=== PATIENT | male | born 1990 | race Caucasian/White ===

== ENCOUNTER 2018-07-09 10:58 | Emergency (ER) | payer OTHER ==
[2018-07-09] MEDS ORDERED: NS 1,000 ML IV ONE (11:16)
--- NOTE | 2018-07-09 11:20 | EDPHY ---
H & P Stated Complaint: epigastric pain, blood in stool, vomiting with some blood in emesis Time Seen by Provider: 07/09/18 11:16 HPI/ROS: CHIEF COMPLAINT: Scant hematemesis and hematochezia HISTORY OF PRESENT ILLNESS: The patient presents to the ED with a 1 day history of scant hematemesis and hematochezia. The patient had several episodes of bilious vomiting yesterday. He developed a small amount of hematochezia. The patient is also continued to have some diarrhea and loose stool. He has had some bright red blood noted in the toilet. Patient does report he has a fairly heavy drinker. He has had problems with intermittent GI bleeding in the past which he has not had evaluated. The patient does complain of epigastric pain and some chest discomfort. The patient denies any fever, headache or acute neurologic symptoms. REVIEW OF SYSTEMS: A comprehensive 10 point review of systems is otherwise negative aside from elements mentioned in the history of present illness. Source: Patient Exam Limitations: No limitations - Personal History Current Tetanus/Diphtheria Vaccine: Unsure Current Tetanus Diphtheria and Acellular Pertussis (TDAP): Unsure - Medical/Surgical History Hx Asthma: No Hx Chronic Respiratory Disease: No Hx Diabetes: No Hx Cardiac Disease: No Hx Renal Disease: No Hx Cirrhosis: No Hx Alcoholism: No Hx HIV/AIDS: No Hx Splenectomy or Spleen Trauma: No Other PMH: ETOH - Social History Smoking Status: Current every day smoker - Physical Exam Exam: General Appearance: Alert, no distress Eyes: Pupils equal and round no pallor or injection ENT, Mouth: Mucous membranes moist Respiratory: There are no retractions, lungs are clear to auscultation Cardiovascular: Regular rate and rhythm Gastrointestinal: Minimal epigastric tenderness to palpation, no peritoneal signs, normal bowel sounds Neurological: 5/5 strength noted all 4 extremities Rectal exam: No active bleeding, brown stool noted in the vault Skin: Warm and dry, no rashes Musculoskeletal: Neck is supple nontender Extremities: symmetrical, full range of motion Constitutional: Initial Vital Signs Temperature (C) 36.8 C 07/09/18 11:06 Heart Rate 98 07/09/18 11:06 Respiratory Rate 18 07/09/18 11:06 Blood Pressure 121/76 H 07/09/18 11:06 O2 Sat (%) 96 07/09/18 11:06 O2 Delivery Mode Room Air Allergies/Adverse Reactions: shellfish derived Allergy (Verified 07/09/18 11:06) Home Medications: Medication Instructions Recorded Ondansetron Odt [Zofran Odt] 4 mg PO Q4PRN PRN #20 tab 07/09/18 Pantoprazole Sodium [Protonix 40mg 40 mg PO DAILY #30 tab 07/09/18 (*)] Medical Decision Making - Diagnostics Imaging Results: Imaging Impressions Abdomen X-Ray 07/09/18 11:16 Impression: 1. No localizing features within the abdomen. 2. Normal chest x-ray. ED Course/Re-evaluation: The patient presents the ED with 1 day of vomiting and loose stool. He is noted a scant amount of hematemesis and hematochezia. The patient is noted to be hemodynamically stable upon arrival. Rectal examination demonstrated brown stool. The patient had an IV established. He received a L of normal saline. He received Zofran and a GI cocktail. His initial abdominal examination is reassuring. Workup in the emergency department included a CBC, chemistry panel, liver function panel, coagulation panel and Hemoccult all of which were negative. At this point time I do feel the patient can be started on a proton pump inhibitor. He has been advised to return to the ED for markedly worsening symptoms of bleeding or pain. Additionally the patient has been instructed to follow up with Gastroenterology as he likely does warrant endoscopies given his history of intermittent hematochezia. The patient does have slightly elevated liver function tests likely consistent with his underlying alcohol consumption. I re-evaluated the patient at 12:30 p.m.. He is currently feeling much better. His abdominal examination is benign with only minimal epigastric tenderness. The patient is comfortable going home. He has been advised to return to the ED for markedly worsening symptoms of intestinal bleeding, pain and fever. The patient will be started on Protonix and is given a prescription for Zofran. The patient will contact our on-call associate producer to schedule a follow-up visit. He has also been given the information for the [facility] for assistance with his alcohol dependence. Differential Diagnosis: Differential diagnosis considered includes upper GI bleed, lower GI bleed, gastritis, peptic ulcer disease, pancreatitis, cholecystitis, perforation, obstruction - Data Points Laboratory Results: Laboratory Results 07/09/18 11:25 07/09/18 11:25 07/09/18 07/09/1819 12:15 11:25 11:25 WBC RBC Hgb Hct MCV MCH MCHC RDW Plt Count MPV Neut % (Auto) Lymph % (Auto) [place]ug[place] % (Auto) Eos % (Auto) Baso % (Auto) Nucleat RBC Rel Count Absolute Neuts (auto) Absolute Lymphs (auto) Absolute Monos (auto) Absolute Eos (auto) Absolute Basos (auto) Absolute Nucleated RBC Immature Gran % Immature Gran # PT 12.6 SEC SEC (12.0-15.0) INR 0.98 (0.83-1.16) APTT 26.1 SEC SEC (23.0-38.0) Sodium 134 mEq/L L mEq/L (135-145) Potassium 3.5 mEq/L mEq/L (3.5-5.2) Chloride 97 mEq/L mEq/L (97-110) Carbon Dioxide 26 mEq/l mEq/l (22-31) Anion Gap 11 mEq/L mEq/L (6-14) BUN 13 mg/dL mg/dL (7-23) Creatinine 1.0 mg/dL mg/dL (0.7-1.3) Estimated GFR > 60 Glucose 102 mg/dL H mg/dL (70-100) Calcium 9.2 mg/dL mg/dL (8.5-10.4) Total Bilirubin 1.5 mg/dL H mg/dL (0.1-1.4) Conjugated Bilirubin 0.5 mg/dL mg/dL (0.0-0.5) Unconjugated Bilirubin 1.0 mg/dL mg/dL (0.0-1.1) AST 215 IU/L H IU/L (17-59) ALT 206 IU/L H IU/L (21-72) Alkaline Phosphatase 66 IU/L IU/L (38-126) Total Protein 7.5 g/dL g/dL (6.3-8.2) Albumin 4.5 g/dL g/dL (3.5-5.0) Lipase 261 IU/L IU/L (23-300) Stool Occult Bld Scrn NEGATIVE (NEGATIVE) 07/09/18 11:25 WBC 7.76 10^3/uL 10^3/uL (3.80-9.50) RBC 5.19 10^6/uL 10^6/uL (4.40-6.38) Hgb 17.2 g/dL g/dL (13.7-17.5) Hct 48.1 % % (40.0-51.0) MCV 92.7 fL fL (81.5-99.8) MCH 33.1 pg pg (27.9-34.1) MCHC 35.8 g/dL g/dL (32.4-36.7) RDW 11.6 % % (11.5-15.2) Plt Count 181 10^3/uL 10^3/uL (150-400) MPV 10.1 fL fL (8.7-11.7) Neut % (Auto) 79.8 % H % (39.3-74.2) Lymph % (Auto) 10.1 % L % (15.0-45.0) Refug[place] % (Auto) 6.2 % % (4.5-13.0) Eos % (Auto) 2.4 % % (0.6-7.6) Baso % (Auto) 1.0 % % (0.3-1.7) Nucleat RBC Rel Count 0.0 % % (0.0-0.2) Absolute Neuts (auto) 6.19 10^3/uL 10^3/uL (1.70-6.50) Absolute Lymphs (auto) 0.78 10^3/uL L 10^3/uL (1.00-3.00) Absolute Monos (auto) 0.48 10^3/uL 10^3/uL (0.30-0.80) Absolute Eos (auto) 0.19 10^3/uL 10^3/uL (0.03-0.40) Absolute Basos (auto) 0.08 10^3/uL 10^3/uL (0.02-0.10) Absolute Nucleated RBC 0.00 10^3/uL 10^3/uL (0-0.01) Immature Gran % 0.5 % % (0.0-1.1) Immature Gran # 0.04 10^3/uL 10^3/uL (0.00-0.10) PT INR APTT Sodium Potassium Chloride Carbon Dioxide Anion Gap BUN Creatinine Estimated GFR Glucose Calcium Total Bilirubin Conjugated Bilirubin Unconjugated Bilirubin AST ALT Alkaline Phosphatase Total Protein Albumin Lipase Stool Occult Bld Scrn Medications Given: Discontinued Medications Al Hydroxide/Mg Hydroxide (Maalox Susp) 30 ml PO ONCE ONE Stop: 07/09/18 11:32 Last Admin: 07/09/18 12:03 Dose: 30 ml Hyoscyamine Sulfate (Levsin, Hyomax-Sl) 0.25 mg PO ONCE ONE Stop: 07/09/18 11:32 Last Admin: 07/09/18 12:03 Dose: 0.25 mg Sodium Chloride (Ns) 1,000 mls @ 0 mls/hr IV EDNOW ONE; Wide Open PRN Reason: Protocol Stop: 07/09/18 11:17 Last Admin: 07/09/18 11:48 Dose: 1,000 mls Lidocaine (Lidocaine 2% Viscous) 15 ml PO ONCE ONE Stop: 07/09/18 11:32 Last Admin: 07/09/18 12:03 Dose: 15 ml Pantoprazole Sodium (Protonix) 40 mg IVP EDNOW ONE Stop: 07/09/18 11:32 Last Admin: 07/09/18 12:10 Dose: 40 mg Departure - Departure Disposition: Home, Routine, Self-Care Clinical Impression: Hematochezia Abdominal pain Qualifiers: Abdominal location: epigastric Qualified Code(s): R10.13 - Epigastric pain Condition: Good Instructions: Acute Abdominal Pain (ED) Additional Instructions: 1. Please begin Protonix as prescribed on a daily basis. 2. Zofran as needed for nausea. 3. Given her history of GI bleeding further workup is indicated. You should contact the associate producer you have been referred to to schedule a follow- up visit. 4. Please return to the ED immediately for increasing pain, heavy bleeding, lightheadedness, fever or other concerns. 5. You do have slightly elevated liver function tests likely consistent with your alcohol use. I strongly recommend curtail your alcohol consumption. You have been given the number for the [facility] here in [place] which can help with alcohol withdrawal and dependence. They are open 24 hr a day. Referrals: Lizeth Mcintosh MD [Medical Doctor] - As per Instructions Prescriptions: Ondansetron Odt [Zofran Odt] 4 mg PO Q4PRN PRN #20 tab PRN Reason: For Nausea Pantoprazole Sodium [Protonix 40mg (*)] 40 mg PO DAILY #30 tab
[2018-07-09] MEDS ORDERED: HYOSCYAMINE SULFATE 0.125 MG TAB PO ONE (11:31)
[2018-07-09] MEDS ORDERED: MAG HYDROX/AL HYDROX/SIMETH 30 ML UDCUP PO ONE (11:31)
[2018-07-09] MEDS ORDERED: PANTOPRAZOLE SODIUM 40 MG VIAL IVP ONE (11:31)
[2018-07-09] MEDS ORDERED: LIDOCAINE 2% VISCOUS 15 ML UDCUP PO ONE (11:31)
[2018-07-09 11:47] LABS: PLATELET COUNT 181 10^3/uL (150-400)
[2018-07-09 11:50] LABS: INR 0.98 (0.83-1.16); PROTIME(PATIENT) 12.6 SEC (12.0-15.0)
[2018-07-09] MEDS ORDERED: MAG HYDROX/AL HYDROX/SIMETH 30 ML UDCUP ONE (12:09)
[2018-07-09 13:03] VITALS: BP 109/61
== END 2018-07-09 13:05 | disposition home or self-care (01) ==
DX: K92.1 Melena (principal); R10.13 Epigastric pain; E86.9 Volume depletion, unspecified
CPT/HCPCS: 96374